=== PATIENT | female | born 1955 | race Caucasian/White ===

== ENCOUNTER 2019-04-02 22:17 | Observation (INO) | payer BC, OTHER ==
[2019-04-02 23:29] LABS: ADD MAN DIFF? NO
[2019-04-02 23:30] LABS: WHITE BLOOD COUNT 9.2 10^3/ul (4.8-10.8)
[2019-04-02 23:30] LABS: BASOPHIL # 0.1 10^3/ul (0.0-0.1); BASOPHILS % 0.7 % (0.0-2.0); EOSINOPHILS # 0.3 10^3/ul (0.0-0.5); EOSINOPHILS % 2.8 % (0.0-7.0); HEMATOCRIT 42.9 % (37.0-47.0); HEMOGLOBIN 14.2 g/dl (12.0-16.0); LYMPHOCYTES # 2.6 10^3/ul (0.8-2.9); LYMPHOCYTES % 28.3 % (15.0-51.0); MEAN CORPUSCULAR HEMOGLOBIN 28.1 pg (29.0-33.0); MEAN CORPUSCULAR HGB CONC 33.1 g/dl (32.0-37.0); MEAN CORPUSCULAR VOLUME 84.8 fl (82.0-101.0); MEAN PLATELET VOLUME 9.4 fl (7.4-10.4); MONOCYTE # 0.7 10^3/ul (0.3-0.9); MONOCYTES % 7.1 % (0.0-11.0); NEUTROPHIL # 5.6 10^3/ul (1.6-7.5); NEUTROPHILS % 60.6 % (39.0-77.0); PLATELET COUNT 316 10^3/UL (140-415); RED BLOOD COUNT 5.06 10^6/ul (4.20-5.40); RED CELL DISTRIBUTION WIDTH 11.9 % (11.5-14.5)
[2019-04-02] MEDS: SOD CHLORIDE 0.9% 1,000 ML IV (23:30)
[2019-04-02] MEDS: ASPIRIN 81 MG TAB PO (23:30)
[2019-04-02] MEDS: KETOROLAC 15 MG INJ IV (23:30)
[2019-04-02 23:48] LABS: ALANINE AMINOTRANSFERASE 31 IU/L (13-69); ALBUMIN/GLOBULIN RATIO 1.35; ALKALINE PHOSPHATASE 91 IU/L (42-121); ANION GAP 11 (5-13); ASPARTATE AMINO TRANSFERASE 30 IU/L (15-46); BILIRUBIN,INDIRECT 0.7 mg/dl (0-1.1); BILIRUBIN,TOTAL 0.7 mg/dl (0.2-1.3); BLOOD UREA NITROGEN 20 mg/dl (7-20); CALCIUM 10.2 mg/dl (8.4-10.2); CARBON DIOXIDE 27 mmol/L (21-31); CHLORIDE 105 mmol/L (97-110); CREATININE 1.07 mg/dl (0.44-1.00); Estimated GFR 52 mL/min (>60); GLUCOSE 208 mg/dl (70-220); LIPASE 194 U/L (23-300); POTASSIUM 3.9 mmol/L (3.5-5.1); SODIUM 143 mmol/L (135-144); TOTAL PROTEIN 8.7 g/dl (6.1-8.1)
[2019-04-03 00:01] LABS: TROPONIN-I < 0.012 ng/ml (0.000-0.120)
[2019-04-03] MEDS: LORAZEPAM 0.5 MG TAB PO (00:19)
[2019-04-03 00:32] LABS: ADD UMIC YES; UR ASCORBIC ACID NEGATIVE (NEGATIVE); UR BILIRUBIN (Dip) NEGATIVE (NEGATIVE); UR BLOOD (Dip) 1+ mg/dL (NEGATIVE); UR CLARITY CLEAR (CLEAR); UR COLOR COLORLESS (YELLOW); UR GLUCOSE (Dip) 1+ mg/dL (NEGATIVE); UR KETONES (Dip) NEGATIVE (NEGATIVE); UR LEUKOCYTE ESTERASE (Dip) NEGATIVE Leu/ul (NEGATIVE); UR NITRITE (Dip) NEGATIVE (NEGATIVE); UR RBC 0 /HPF (0-5); UR SPECIFIC GRAVITY (Dip) 1.003 (1.003-1.030); UR TOTAL PROTEIN (Dip) 1+ mg/dl (NEGATIVE); UR UROBILINOGEN (Dip) NEGATIVE (NEGATIVE); UR WBC 0 /HPF (0-5)
[2019-04-03] MEDS ORDERED: NACL 0.9% 3 ML SYG IV (02:00)
[2019-04-03] MEDS ORDERED: ACETAMINOPHEN 325 MG TAB PO (02:00)
[2019-04-03] MEDS ORDERED: ONDANSETRON 4 MG TAB PO (02:00)
[2019-04-03] MEDS ORDERED: HYDROCODONE/APAP (5/325) TAB PO (02:00)
[2019-04-03] MEDS ORDERED: DOCUSATE SODIUM 100 MG CAP PO (02:00)
[2019-04-03] MEDS: FAMOTIDINE 20 MG TAB PO ×2 (03:16→09:31)
[2019-04-03 07:06] LABS: D-DIMER 364.66 ng/ml (<460)
[2019-04-03 07:28] LABS: CREATINE KINASE 145 IU/L (23-200)
[2019-04-03 07:35] LABS: CK INDEX 1.6; CK-MB 2.34 ng/ml (0.0-2.4); TROPONIN-I < 0.012 ng/ml (0.000-0.120)
[2019-04-03 07:37] LABS: HEMOGLOBIN A1C 6.5 % (0-5.9)
[2019-04-03 07:46] LABS: THYROID STIMULATING HORMONE 0.504 MIU/L (0.465-4.680)
[2019-04-03 08:04] LABS: ERYTHROCYTE SEDIMENTATION RATE 8 mm/Hr (0-30)
[2019-04-03] MEDS: ENOXAPARIN 30 MG/0.3 ML SYG SC (09:00)
[2019-04-03] MEDS: ASPIRIN 81 MG TAB PO (09:31)
[2019-04-03 11:13] LABS: CREATINE KINASE 139 IU/L (23-200)
[2019-04-03 11:25] LABS: CK INDEX 1.5; CK-MB 2.03 ng/ml (0.0-2.4); TROPONIN-I < 0.012 ng/ml (0.000-0.120)
== END 2019-04-03 13:02 | disposition home or self-care (01) ==
LOC: E/R 22:17 → TEL 04-03 01:22
DX: R07.89 Other chest pain (principal); E11.9 Type 2 diabetes mellitus without complications; I10 Essential (primary) hypertension; E78.5 Hyperlipidemia, unspecified; Z79.4 Long term (current) use of insulin
CPT/HCPCS: 36415; 71045; 80053; 81001; 82550; 82553; 82962; 83036; 83690; 84443; 84484; 85025; 85378; 85651; 93005; 96374; 99285-25; G0378

== ENCOUNTER 2019-04-24 21:55 | Emergency (ER) | payer BC, OTHER ==
[2019-04-24] MEDS: ONDANSETRON 4 MG INJ IV (23:04)
[2019-04-24] MEDS: morphine 4 MG/ML VIAL IV (23:05)
[2019-04-24] MEDS: SOD CHLORIDE 0.9% 500 ML IV (23:05)
[2019-04-24 23:16] LABS: ADD MAN DIFF? NO
[2019-04-24 23:28] LABS: BASOPHILS % 0.4 % (0.0-2.0); EOSINOPHILS # 0.1 10^3/ul (0.0-0.5); EOSINOPHILS % 0.8 % (0.0-7.0); HEMATOCRIT 41.7 % (37.0-47.0); HEMOGLOBIN 14.2 g/dl (12.0-16.0); LYMPHOCYTES # 1.2 10^3/ul (0.8-2.9); LYMPHOCYTES % 11.4 % (15.0-51.0); MEAN CORPUSCULAR HEMOGLOBIN 28.7 pg (29.0-33.0); MEAN CORPUSCULAR HGB CONC 34.1 g/dl (32.0-37.0); MEAN CORPUSCULAR VOLUME 84.2 fl (82.0-101.0); MEAN PLATELET VOLUME 9.5 fl (7.4-10.4); MONOCYTE # 0.5 10^3/ul (0.3-0.9); MONOCYTES % 4.8 % (0.0-11.0); NEUTROPHIL # 8.4 10^3/ul (1.6-7.5); NEUTROPHILS % 82.2 % (39.0-77.0); PLATELET COUNT 299 10^3/UL (140-415); RED BLOOD COUNT 4.95 10^6/ul (4.20-5.40); RED CELL DISTRIBUTION WIDTH 12.1 % (11.5-14.5)
[2019-04-24 23:28] LABS: WHITE BLOOD COUNT 10.2 10^3/ul (4.8-10.8)
[2019-04-24 23:33] LABS: ADD UMIC NO; UR ASCORBIC ACID NEGATIVE (NEGATIVE); UR BILIRUBIN (Dip) NEGATIVE (NEGATIVE); UR BLOOD (Dip) NEGATIVE (NEGATIVE); UR CLARITY CLEAR (CLEAR); UR COLOR COLORLESS (YELLOW); UR GLUCOSE (Dip) 3+ mg/dL (NEGATIVE); UR KETONES (Dip) TRACE mg/dL (NEGATIVE); UR LEUKOCYTE ESTERASE (Dip) NEGATIVE Leu/ul (NEGATIVE); UR NITRITE (Dip) NEGATIVE (NEGATIVE); UR SPECIFIC GRAVITY (Dip) 1.008 (1.003-1.030); UR TOTAL PROTEIN (Dip) NEGATIVE (NEGATIVE); UR UROBILINOGEN (Dip) NEGATIVE (NEGATIVE)
[2019-04-24 23:43] LABS: ALANINE AMINOTRANSFERASE 26 IU/L (13-69); ALBUMIN 4.6 g/dl (3.3-4.9); ALBUMIN/GLOBULIN RATIO 1.43; ALKALINE PHOSPHATASE 105 IU/L (42-121); ANION GAP 12 (5-13); ASPARTATE AMINO TRANSFERASE 30 IU/L (15-46); BILIRUBIN,INDIRECT 0.6 mg/dl (0-1.1); BILIRUBIN,TOTAL 0.6 mg/dl (0.2-1.3); BLOOD UREA NITROGEN 19 mg/dl (7-20); CALCIUM 9.4 mg/dl (8.4-10.2); CARBON DIOXIDE 30 mmol/L (21-31); CHLORIDE 98 mmol/L (97-110); CREATININE 0.83 mg/dl (0.44-1.00); Estimated GFR > 60 mL/min (>60); GLUCOSE 323 mg/dl (70-220); LIPASE 137 U/L (23-300); POTASSIUM 3.7 mmol/L (3.5-5.1); SODIUM 140 mmol/L (135-144); TOTAL PROTEIN 7.8 g/dl (6.1-8.1)
[2019-04-24 23:54] LABS: TROPONIN-I < 0.012 ng/ml (0.000-0.120)
== END 2019-04-25 01:30 | disposition home or self-care (01) ==
LOC: E/R 04-25 01:30
DX: R10.13 Epigastric pain (principal); I10 Essential (primary) hypertension; E11.9 Type 2 diabetes mellitus without complications; Z79.4 Long term (current) use of insulin
CPT/HCPCS: 36415; 76705; 80053; 81003; 83690; 84484; 85025; 93005; 96374; 96375; 99285-25